=== PATIENT | male | born 1950 | race Hispanic/Latino ===

== ENCOUNTER 2017-09-24 08:07 | Day surgery (SDC) | payer OTHER ==
[2017-09-24] MEDS ORDERED: NACL 0.9% 1000 ML 1,000 ML ONE (09:35)
[2017-09-24] MEDS ORDERED: BREVIBLOC IV ONE (10:00)
[2017-09-24] MEDS ORDERED: NACL 0.9% 1000 ML 1,000 ML IV SCH (10:00)
[2017-09-24] MEDS ORDERED: XYLOCAINE MPF 2% ONE (10:00)
[2017-09-24] MEDS ORDERED: WATER FOR IRRIG STERILE IR ONE (10:02)
[2017-09-24] MEDS ORDERED: WATER FOR IRRIG STERILE ONE (10:03)
[2017-09-24] MEDS ORDERED: DIPRIVAN 10 MG/ML IV ONE ×2 (10:14)
--- NOTE | 2017-09-24 10:44 | Post Operative Note ---
Pre-op diagnosis: personal history of colon polyps; surveillance colonsocopy Post-op diagnosis: same (diverticulosis, internal hemorrhoids) Findings: 1. Diverticulosis 2. Internal hemorrhoids Procedure: Colonoscopy Anesthesia: MAC Surgeon: RUFINA ROMEO Estimated blood loss: none Pathology: none Condition: stable Disposition: same day
--- NOTE | 2017-09-24 10:49 | Operative Report ---
Operative Report Operative Report: Colonoscopy Procedure Note Date of procedure: 09/24/2017 Endoscopist: Timothy Longoria Pre-op diagnosis: personal history of colon polyps, surveillance colonoscopy Post-op diagnosis: diverticulosis, internal hemorrhoids Anesthesia: MAC Complications: No immediate complications Estimated blood loss: none Procedure: After consent was obtained, the patient was placed in the left lateral decubitus position. The fujinon colonoscope was inserted into the patient's rectum under direct vision, and advanced to the cecum without difficulty. The patient tolerated the procedure well. The views of the mucosa were fair. The quality of prep was fair. The patient's vital signs were monitored continuously throughout the procedure. Findings: There were multiple small and large diverticula throughout the colon (more pronounced on the left side of colon) Internal hemorrhoids were visualized (moderate sized) on retroflexion view. Otherwise, the colon appeared normal. Impression: 1. Diverticulosis 2. Internal hemorrhoids Recommendations: -high fiber diet daily -repeat colonoscopy due to personal history of polyps in 5 years
[2017-09-24 11:00] VITALS: BP 126/67
--- NOTE | 2017-09-24 12:06 | Anesthesia Consultation ---
Anesthesia Consult and Med Hx Date of service: 09/24/17 - Airway Anesthetic Teeth Evaluation: Dentures (upper, lower) ROM Head & Neck: Adequate Mental/Hyoid Distance: Adequate Mallampati Class: Class III Intubation Access Assessment: Possibly Difficult - Pulmonary Exam CTA: Yes - Cardiac Exam Anesthetic Concerns: AFIB - Pre-Operative Health Status ASA Pre-Surgery Classification: ASA3 - Pulmonary COPD: Yes Home Oxygen Therapy: Yes - Cardiovascular System Hx Hypertension: Yes Hx Heart Attack/AMI: Yes Hx Angina: No Hx Percutaneous Transluminal Coronary Angioplasty (PTCA): Yes Hx Cardia Arrhythmia: Yes (afib) Hx Internal Defibrillator: Yes
--- NOTE | 2017-09-24 12:07 | Anesthesia Day of Surgery ---
Anesthesia Day of Surgery - Day of Surgery Patient Examined: Yes Patient H&P Reviewed: Yes Patient is NPO: Yes Beta Blockers: Yes
== END 2017-09-24 08:08 | disposition home or self-care (01) ==
LOC: GIO 08:07
PROVIDERS: ATTEND Internal Medicine Gastroenterology
DX: Z12.11 Encounter for screening for malignant neoplasm of colon (principal); K57.30 Diverticulosis of large intestine without perforation or abscess without bleeding; K64.8 Other hemorrhoids; J44.9 Chronic obstructive pulmonary disease, unspecified; I25.10 Atherosclerotic heart disease of native coronary artery without angina pectoris; E03.9 Hypothyroidism, unspecified; I13.0 Hypertensive heart and chronic kidney disease with heart failure and stage 1 through stage 4 chronic kidney disease, or unspecified chronic kidney disease; N18.9 Chronic kidney disease, unspecified; I50.9 Heart failure, unspecified; I48.91 Unspecified atrial fibrillation; I25.2 Old myocardial infarction; F17.200 Nicotine dependence, unspecified, uncomplicated; Z95.810 Presence of automatic (implantable) cardiac defibrillator; Z98.61 Coronary angioplasty status; Z68.20 Body mass index [BMI] 20.0-20.9, adult; Z88.0 Allergy status to penicillin; Z88.8 Allergy status to other drugs, medicaments and biological substances; Z99.81 Dependence on supplemental oxygen; Z86.010 Personal history of colon polyps
CPT/HCPCS: G0105; J2704; J7030

== ENCOUNTER 2018-07-20 06:47 | Inpatient (IN) | payer OTHER ==
[2018-07-20 07:31] LABS: Basophils # (Auto) 0.1 K/mm3 (0.0-0.1); Basophils % (Auto) 0.7 % (0.0-1.8); Eosinophils # (Auto) 0.1 K/mm3 (0.0-0.4); Eosinophils % (Auto) 1.3 % (0.0-4.3); Hematocrit 41.2 % (35.5-45.6); Hemoglobin 14.1 gm/dl (11.8-15.2); Lymphocytes # (Auto) 1.2 K/mm3 (1.2-5.4); Lymphocytes % (Auto) 12.8 % (13.4-35.0); Mean Corpuscular HGB Conc 34 % (32-34); Mean Corpuscular Volume 104 fl (84-94); Monocytes # (Auto) 0.8 K/mm3 (0.0-0.8); Monocytes % (Auto) 8.9 % (0.0-7.3); Red Blood Count 3.95 M/mm3 (3.65-5.03); Red Cell Distribution Width 14.6 % (13.2-15.2)
[2018-07-20 07:34] LABS: Platelet Count 95 K/mm3 (140-440)
[2018-07-20 07:38] LABS: INR 0.94 (0.87-1.13)
[2018-07-20 07:39] LABS: Partial Thromboplastin Time 29.9 Sec. (24.2-36.6)
[2018-07-20 07:46] LABS: BUN/Creatinine Ratio 12; Blood Urea Nitrogen 17 mg/dL (9-20); Calcium 9.1 mg/dL (8.4-10.2); Hemolysis Index 7
[2018-07-20] MEDS ORDERED: PEPCID IV ONE ×2 (08:30→14:36)
[2018-07-20] MEDS ORDERED: NITROSTAT SL PRN (08:30)
--- NOTE | 2018-07-20 08:31 | Emergency Department Report ---
ED Chest Pain HPI - General Chief Complaint: Chest Pain Stated Complaint: CHEST PAIN Time Seen by Provider: 07/20/18 08:23 Source: patient, EMS (ems notes not available at time of chart dictation), RN notes reviewed, old records reviewed Mode of arrival: Stretcher Limitations: Physical Limitation - History of Present Illness Initial Comments: Primary care DrBrandy: [facility] Past medical history: Pulmonary hypertension, congestive heart failure, ejection fraction 40%, atrial fibrillation, not on anticoagulation secondary to bleeding, AICD, advanced emphysema on home oxygen. Seen in this hospital a few months ago for shortness of breath chest pain, headache CT scan of the chest which was negative for pulmonary embolus. This is a 68-year-old gentleman with a history of ischemic heart disease, who presents to the emergency room today with a complaint of "angina." He reports typical substernal and subxiphoid burning pain, which is not radiating to the back, arms or neck, chronic shortness of breath, really no nausea, vomiting or diaphoresis. These symptoms of angina are intermittent, and basically resolved. He endorses compliance with his outpatient medications. He denies headache, neck pain, shortness of breath which is new or different, does report chronic shortness of breath He furthermore denies DVT, pulmonary embolus risk factors. No posterior leg pain, no posterior leg swelling, no recent surgeries, trips or prolonged periods of immobilization. His angina pain is basically resolved at this point in time. MD Complaint: chest pain -: Sudden Onset: during rest Pain Location: substernal, epigastric Pain Radiation: none Severity: moderate Severity scale (0 -10): 6 Quality: other (burning, aching, pressure) Consistency: intermittent Improves With: nothing Worsens With: nothing Aspirin use within the Past 7 Days: (1) Yes - Related Data On Oral Contraceptives: No Home Medications Medication Instructions Recorded Confirmed Last Taken Allopurinol [Zyloprim] 300 mg PO QDAY 09/24/17 04/08/18 1 Day Ago ~04/07/18 Aspirin [Aspirin TAB] 325 mg PO ONCE 09/24/17 04/08/18 1 Day Ago ~04/07/18 Cetirizine HCl [ZyrTEC] 10 mg PO QDAY 09/24/17 04/08/18 1 Day Ago ~04/07/18 Cholecalciferol (Vitamin D3) 1,000 unit PO QDAY 09/24/17 04/08/18 09/23/17 10:00 [Vitamin D3] Digoxin [Lanoxin] 0.25 mg PO DAILY 09/24/17 04/08/18 1 Day Ago ~04/07/18 Mometasone Furoate [Asmanex] 2 puff IH QPM 09/24/17 04/08/18 1 Day Ago ~04/07/18 Nicotine Polacrilex [Nicotine 2 mg BC QID 09/24/17 04/08/18 1 Day Ago Lozenge] ~04/07/18 Polyethylene Glycol 3350 17 gm PO QDAY 09/24/17 04/08/18 1 Day Ago [Smoothlax] ~04/07/18 Ranitidine HCl [Zantac 150 MG TAB] 150 mg PO BID 09/24/17 04/08/18 1 Day Ago ~04/07/18 Simvastatin [Zocor TAB] 40 mg PO QHS 09/24/17 04/08/18 1 Day Ago ~04/07/18 Tiotropium Br/Olodaterol HCl 4 gm IH QDAY 09/24/17 04/08/18 1 Day Ago [Stiolto Respimat Inhal [place]] ~04/07/18 Previous Rx's Medication Instructions Recorded Last Taken Type ALBUTEROL Inhaler (OR & NICU) 2 puff IH Q4HR PRN #1 pump 04/11/18 Unknown Rx [ProAir HFA Inhaler] Azithromycin [Zithromax TAB] 500 mg PO QDAY #3 tablet 04/11/18 Unknown Rx Furosemide [Lasix TAB] 40 mg PO QAM #30 tablet 04/11/18 Unknown Rx Metoprolol Xl [Metoprolol 100 mg PO BID #60 tablet 04/11/18 Unknown Rx SUCCINATE ER TAB] Nitroglycerin [Nitrostat] 0.4 mg SL Q5M PRN #30 tab 04/11/18 Unknown Rx Prednisone [predniSONE 5 mg (6-Day 5 mg PO .TAPER #1 tab.ds.pk 04/11/18 Unknown Rx Pack, 21 Tabs)] dilTIAZem CD [Cardizem Cd] 120 mg PO DAILY #30 cap 04/12/18 Unknown Rx Allergies Allergy/AdvReac Type Severity Reaction Status Date / Time amiodarone Allergy Unknown Itching Verified 04/08/18 01:54 Penicillins Allergy Unknown Itching Verified 04/08/18 01:53 warfarin Allergy Unknown Itching Verified 04/08/18 01:54 Heart Score - HEART Score History: Moderately suspicious EKG: Non-specific Age: > 65 Risk factors: > 3 risk factors or hx of atherosclerotic disease Troponin: < normal limit HEART Score: 6 - Critical Actions Critical Actions: 4-6 pts:12-16.6% risk of adverse cardiac event. Should be admitted ED Review of Systems ROS: Stated complaint: CHEST PAIN Other details as noted in HPI Constitutional: malaise. denies: fever Eyes: denies: vision change ENT: denies: epistaxis Respiratory: denies: cough Cardiovascular: chest pain Gastrointestinal: denies: vomiting Genitourinary: denies: dysuria Musculoskeletal: denies: back pain, arthralgia, myalgia Skin: lesions (chronic skin hyperpigmentation) Neurological: weakness Psychiatric: denies: anxiety ED Past Medical Hx - Past Medical History Previous Medical History?: Yes Hx Hypertension: Yes Hx Heart Attack/AMI: Yes Hx Congestive Heart Failure: Yes Hx COPD: Yes Hx Tuberculosis: No Hx HIV: No Additional medical history: A-FIB - Surgical History Past Surgical History?: Yes Hx Coronary Stent: Yes (x 2) Hx Pacemaker: Yes Hx Internal Defibrillator: Yes - Social History Smoking Status: Current Every Day Smoker Substance Use Type: None - Medications Home Medications: Home Medications Medication Instructions Recorded Confirmed Last Taken Type Allopurinol [Zyloprim] 300 mg PO QDAY 09/24/17 04/08/18 1 Day Ago History ~04/07/18 Aspirin [Aspirin TAB] 325 mg PO ONCE 09/24/17 04/08/18 1 Day Ago History ~04/07/18 Cetirizine HCl [ZyrTEC] 10 mg PO QDAY 09/24/17 04/08/18 1 Day Ago History ~04/07/18 Cholecalciferol (Vitamin D3) 1,000 unit PO QDAY 09/24/17 04/08/18 09/23/17 10:00 History [Vitamin D3] Digoxin [Lanoxin] 0.25 mg PO DAILY 09/24/17 04/08/18 1 Day Ago History ~04/07/18 Mometasone Furoate [Asmanex] 2 puff IH QPM 09/24/17 04/08/18 1 Day Ago History ~04/07/18 Nicotine Polacrilex [Nicotine 2 mg BC QID 09/24/17 04/08/18 1 Day Ago History Lozenge] ~04/07/18 Polyethylene Glycol 3350 17 gm PO QDAY 09/24/17 04/08/18 1 Day Ago History [Smoothlax] ~04/07/18 Ranitidine HCl [Zantac 150 MG TAB] 150 mg PO BID 09/24/17 04/08/18 1 Day Ago History ~04/07/18 Simvastatin [Zocor TAB] 40 mg PO QHS 09/24/17 04/08/18 1 Day Ago History ~04/07/18 Tiotropium Br/Olodaterol HCl 4 gm IH QDAY 09/24/17 04/08/18 1 Day Ago History [Stiolto Respimat Inhal [place]] ~04/07/18 ALBUTEROL Inhaler (OR & NICU) 2 puff IH Q4HR PRN #1 pump 04/11/18 Unknown Rx [ProAir HFA Inhaler] Azithromycin [Zithromax TAB] 500 mg PO QDAY #3 tablet 04/11/18 Unknown Rx Furosemide [Lasix TAB] 40 mg PO QAM #30 tablet 04/11/18 Unknown Rx Metoprolol Xl [Metoprolol 100 mg PO BID #60 tablet 04/11/18 Unknown Rx SUCCINATE ER TAB] Nitroglycerin [Nitrostat] 0.4 mg SL Q5M PRN #30 tab 04/11/18 Unknown Rx Prednisone [predniSONE 5 mg (6-Day 5 mg PO .TAPER #1 tab.ds.pk 04/11/18 Unknown Rx Pack, 21 Tabs)] dilTIAZem CD [Cardizem Cd] 120 mg PO DAILY #30 cap 04/12/18 Unknown Rx ED Physical Exam - General Limitations: No Limitations, Physical Limitation General appearance: in no apparent distress - Head Head exam: Present: atraumatic, normocephalic - Eye Eye exam: Present: normal appearance, EOMI. Absent: nystagmus - ENT ENT exam: Present: normal exam, normal orophraynx, mucous membranes moist, normal external ear exam - Neck Neck exam: Present: normal inspection, full ROM. Absent: tenderness, meningismus - Respiratory Respiratory exam: Present: normal lung sounds bilaterally, decreased breath sounds. Absent: respiratory distress, wheezes, rales, rhonchi, stridor - Cardiovascular Cardiovascular Exam: Present: regular rate, irregular rhythm, normal heart so unds. Absent: systolic murmur, diastolic murmur, rubs, gallop - GI/Abdominal GI/Abdominal exam: Present: soft. Absent: distended, tenderness, guarding, rebound, rigid, pulsatile mass - Rectal Rectal exam: Present: deferred - Extremities Exam Extremities exam: Present: normal inspection, full ROM, other (2+ pulses noted in the bilateral upper, lower extremities. Compartments soft. No long bony tenderness. The pelvis is stable.). Absent: pedal edema, joint swelling, calf tenderness - Back Exam Back exam: Present: normal inspection, full ROM. Absent: tenderness, CVA tenderness (R), paraspinal tenderness, vertebral tenderness - Neurological Exam Neurological exam: Present: alert, other (Extraocular movements intact. Tongue midline. No facial droop. Facial sensation intact to light touch in the V1, V2, V3 distribution bilaterally. 5 and 5 strength in 4 extremities.. Sensation is intact to light touch in 4 extremities.). Absent: motor sensory deficit - Psychiatric Psychiatric exam: Present: normal affect, normal mood - Skin Skin exam: Present: warm, dry, intact, normal color. Absent: rash ED Course Vital Signs 07/20/18 07/20/18 07/20/18 06:55 06:59 07:01 Temperature 97.8 F Pulse Rate 71 74 Respiratory 20 20 21 Rate Blood Pressure 142/62 O2 Sat by Pulse 100 92 100 Oximetry 07/20/18 07/20/18 07/20/18 07:15 07:30 07:45 Temperature Pulse Rate 82 82 85 Respiratory 28 H 21 21 Rate Blood Pressure 134/83 132/69 125/65 O2 Sat by Pulse 100 98 98 Oximetry 07/20/18 07/20/18 07/20/18 08:00 08:15 08:30 Temperature Pulse Rate 85 73 92 H Respiratory 19 22 14 Rate Blood Pressure 121/66 125/67 132/68 O2 Sat by Pulse 98 95 Oximetry 07/20/18 07/20/18 07/20/18 08:45 09:01 09:15 Temperature Pulse Rate 78 86 90 Respiratory 23 22 19 Rate Blood Pressure 125/78 129/63 119/70 O2 Sat by Pulse 99 99 99 Oximetry 07/20/18 07/20/18 07/20/18 09:30 09:45 10:00 Temperature Pulse Rate 80 88 Respiratory 23 23 Rate Blood Pressure 133/64 120/60 124/66 O2 Sat by Pulse 98 100 Oximetry 07/20/18 10:15 Temperature Pulse Rate 89 Respiratory 25 H Rate Blood Pressure 121/54 O2 Sat by Pulse 100 Oximetry VERONICA score - Veronica Score Age > 65: (1) Yes Aspirin use within the Past 7 Days: (1) Yes 3 or more CAD Risk Factors: (1) Yes 2 or more Angina events in past 24 hrs: (1) Yes Known CAD with more than 50% Stenosis: (0) No Elevated Cardiac Markers: (0) No ST Deviation Greater than 0.5mm: (0) No VERONICA Score: 4 ED Medical Decision Making - Lab Data Result diagrams: 07/20/18 07:12 07/20/18 07:12 Vital Signs 07/20/18 07/20/18 07/20/18 06:55 06:59 07:01 Temperature 97.8 F Pulse Rate 71 74 Respiratory 20 20 21 Rate Blood Pressure 142/62 O2 Sat by Pulse 100 92 100 Oximetry 07/20/18 07/20/18 07/20/18 07:15 07:30 07:45 Temperature Pulse Rate 82 82 85 Respiratory 28 H 21 21 Rate Blood Pressure 134/83 132/69 125/65 O2 Sat by Pulse 100 98 98 Oximetry 07/20/18 07/20/18 07/20/18 08:00 08:15 08:30 Temperature Pulse Rate 85 73 92 H Respiratory 19 22 14 Rate Blood Pressure 121/66 125/67 132/68 O2 Sat by Pulse 98 95 Oximetry 07/20/18 07/20/18 07/20/18 08:45 09:01 09:15 Temperature Pulse Rate 78 86 90 Respiratory 23 22 19 Rate Blood Pressure 125/78 129/63 119/70 O2 Sat by Pulse 99 99 99 Oximetry 07/20/18 07/20/18 07/20/18 09:30 09:45 10:00 Temperature Pulse Rate 80 88 Respiratory 23 23 Rate Blood Pressure 133/64 120/60 124/66 O2 Sat by Pulse 98 100 Oximetry 07/20/18 10:15 Temperature Pulse Rate 89 Respiratory 25 H Rate Blood Pressure 121/54 O2 Sat by Pulse 100 Oximetry Lab Results 07/20/18 07/20/18 07/20/18 Range/Units 07:12 07:12 07:12 WBC 9.4 (4.5-11.0) K/mm3 RBC 3.95 (3.65-5.03) M/mm3 Hgb 14.1 (11.8-15.2) gm/dl Hct 41.2 (35.5-45.6) % MCV 104 H (84-94) fl MCH 36 H (28-32) pg MCHC 34 (32-34) % RDW 14.6 (13.2-15.2) % Plt Count 95 L (140-440) K/mm3 Lymph % (Auto) 12.8 L (13.4-35.0) % Graham % (Auto) 8.9 H (0.0-7.3) % Eos % (Auto) 1.3 (0.0-4.3) % Baso % (Auto) 0.7 (0.0-1.8) % Lymph # 1.2 (1.2-5.4) K/mm3 Graham # 0.8 (0.0-0.8) K/mm3 Eos # 0.1 (0.0-0.4) K/mm3 Baso # 0.1 (0.0-0.1) K/mm3 Seg Neutrophils % 76.3 H (40.0-70.0) % Seg Neutrophils # 7.2 (1.8-7.7) K/mm3 PT 13.1 (12.2-14.9) Sec. INR 0.94 (0.87-1.13) APTT 29.9 (24.2-36.6) Sec. Sodium 139 (137-145) mmol/L Potassium 3.7 (3.6-5.0) mmol/L Chloride 97.0 L (98-107) mmol/L Carbon Dioxide 30 (22-30) mmol/L Anion Gap 16 mmol/L BUN 17 (9-20) mg/dL Creatinine 1.4 (0.8-1.5) mg/dL Estimated GFR 50 ml/min BUN/Creatinine Ratio 12 % Glucose 121 H (75-100) mg/dL Hemoglobin A1c (4-6) % Calcium 9.1 (8.4-10.2) mg/dL Troponin T < 0.010 (0.00-0.029) ng/mL Lipase (13-60) units/L 07/20/18 07/20/18 07/20/18 Range/Units 07:12 08:41 09:29 WBC (4.5-11.0) K/mm3 RBC (3.65-5.03) M/mm3 Hgb (11.8-15.2) gm/dl Hct (35.5-45.6) % MCV (84-94) fl MCH (28-32) pg MCHC (32-34) % RDW (13.2-15.2) % Plt Count (140-440) K/mm3 Lymph % (Auto) (13.4-35.0) % Graham % (Auto) (0.0-7.3) % Eos % (Auto) (0.0-4.3) % Baso % (Auto) (0.0-1.8) % Lymph # (1.2-5.4) K/mm3 Graham # (0.0-0.8) K/mm3 Eos # (0.0-0.4) K/mm3 Baso # (0.0-0.1) K/mm3 Seg Neutrophils % (40.0-70.0) % Seg Neutrophils # (1.8-7.7) K/mm3 PT (12.2-14.9) Sec. INR (0.87-1.13) APTT (24.2-36.6) Sec. Sodium (137-145) mmol/L Potassium (3.6-5.0) mmol/L Chloride (98-107) mmol/L Carbon Dioxide (22-30) mmol/L Anion Gap mmol/L BUN (9-20) mg/dL Creatinine (0.8-1.5) mg/dL Estimated GFR ml/min BUN/Creatinine Ratio % Glucose (75-100) mg/dL Hemoglobin A1c 5.1 (4-6) % Calcium (8.4-10.2) mg/dL Troponin T < 0.010 (0.00-0.029) ng/mL Lipase 36 (13-60) units/L - EKG Data -: EKG Interpreted by Ut - EKG Data 07/20/18 12:10 Atrial fibrillation, 84 bpm, borderline left axis deviation, premature ventricular contractions, abnormal EKG, not consistent with ST elevation myocardial infarction - Radiology Data Radiology results: report reviewed, image reviewed X-ray of the chest shows chronic emphysematous changes. No acute disease. - Medical Decision Making Differential diagnosis, including not limited to: Acute coronary syndrome, GERD, gastritis, hiatal hernia, pneumonia, pneumothorax, hemothorax Assessment and plan: 68-year-old gentleman who has multiple cardiovascular risk factors, known history of ischemic heart disease, with concerning chest pain. Reports no pulmonary embolus or DVT risk factors, is low risk by well's criter ia, this is not tachycardic and is not currently hypoxic. Presented with similar symptoms a few months ago, and was ruled out for pulmonary embolus. Clinically doubts a pulmonary embolus at this point time. We will treat his symptoms, and he will be admitted to the medical service for a cardiac risk stratification. He is basically pain-free at this point in time, is resting comfortably in a stretcher, and in no acute disease. X-ray of the chest demonstrates no decompensated or emergent disease, chronic emphysematous changes, and EKG appears to be unchanged from prior. Hospital physician, Dr. Bhargavi Calvo, to admit the patient to the medical service for cardiac risk stratification. Critical care attestation.: If time is entered above; I have spent that time in minutes in the direct care of this critically ill patient, excluding procedure time. ED Disposition Clinical Impression: Chest pain Disposition: OP ADMIT IP TO THIS HOSP Is pt being admited?: Yes Does the pt Need Aspirin: Yes Condition: Good
--- NOTE | 2018-07-20 09:57 | History and Physical Report ---
History of Present Illness Date of examination: 07/20/18 Date of admission: 07/20/18 Chief complaint: chest pain History of present illness: This is a 68-year-old gentleman with a history of CHF EF 40%, atrial fib not on AC, PHTN, COPD, tobacco abuse who presents to the emergency room today with a complaint of "angina." He reports substernal aching pain, which is not radiating to the back, arms or neck, chronic shortness of breath, 6/10 in intensity w/o any nausea, vomiting or diaphoresis. Patient states that this chest pain make hin wake up from sleep in the morning today. But these symptoms of angina were going on intermittently since this weekend. He endorses compliance with his outpatient medications. He denies headache, neck pain, does report chronic shortness of breath. In the ER his troponin normal, no specific EKG changes. He was admitted for further evaluation and admission. PAST MEDICAL HISTORY:COPD, CHF, coronary artery disease, hypertension, A. fib not on AC due to h/o GI bleed, PAST SURGICAL HISTORY: AICD, hip replacement SOCIAL HISTORY: No alcohol, no drugs, smoke 1/2 to 3/4pack cigarettes per day FAMILY HISTORY: Hypertension Review of System: Constitutional: no fever, no chills, no weight loss Ears, eyes, nose, mouth and throat: no nasal congestion, no nasal discharge, no sinus pressure, no vision change, no red eye. Neck: No neck pain or rigidity. Cardiovascular: + chest pain, no orthopnea, no palpitations, no leg swelling Respiratory: No shortness of breath, no cough, no congestion, no wheezing Gastrointestinal: no abdominal pain, no nausea, no vomiting Genitourinary : no dysuria, no hematuria Musculoskeletal: no joint swelling or muscle ache Integumentary: no rash, no pruritis Neurological: no parathesias, no numbness, no tingling Endocrine: no cold or heat intolerance, no polyuria or polydipsia Hematologic/Lymphatic: no easy bruising, no easy bleeding, no gland swelling Allergic/Immunologic: no urticaria, no angioedema. Medications and Allergies Allergies Allergy/AdvReac Type Severity Reaction Status Date / Time amiodarone Allergy Unknown Itching Verified 04/08/18 01:54 Penicillins Allergy Unknown Itching Verified 04/08/18 01:53 warfarin Allergy Unknown Itching Verified 04/08/18 01:54 Home Medications Medication Instructions Recorded Confirmed Last Taken Type Allopurinol [Zyloprim] 300 mg PO QDAY 09/24/17 07/20/18 1 Day Ago History ~04/07/18 Aspirin [Aspirin TAB] 325 mg PO ONCE 09/24/17 07/20/18 1 Day Ago History ~04/07/18 Cetirizine HCl [ZyrTEC] 10 mg PO QDAY 09/24/17 07/20/18 1 Day Ago History ~04/07/18 Cholecalciferol (Vitamin D3) 1,000 unit PO QDAY 09/24/17 07/20/18 09/23/17 10:00 History [Vitamin D3] Digoxin [Lanoxin] 0.25 mg PO DAILY 09/24/17 07/20/18 1 Day Ago History ~04/07/18 Mometasone Furoate [Asmanex] 2 puff IH QPM 09/24/17 07/20/18 1 Day Ago History ~04/07/18 Polyethylene Glycol 3350 17 gm PO QDAY 09/24/17 07/20/18 1 Day Ago History [Smoothlax] ~04/07/18 Ranitidine HCl [Zantac 150 MG TAB] 150 mg PO BID 09/24/17 07/20/18 1 Day Ago History ~04/07/18 Tiotropium Br/Olodaterol HCl 4 gm IH QDAY 09/24/17 07/20/18 1 Day Ago History [Stiolto Respimat Inhal [place]] ~04/07/18 ALBUTEROL Inhaler (OR & NICU) 2 puff IH Q4HR PRN #1 pump 04/11/18 07/20/18 Unknown Rx [ProAir HFA Inhaler] Furosemide [Lasix TAB] 40 mg PO QAM #30 tablet 04/11/18 07/20/18 Unknown Rx Prednisone [predniSONE 5 mg (6-Day 5 mg PO .TAPER #1 tab.ds.pk 04/11/18 07/20/18 Unknown Rx Pack, 21 Tabs)] AtorvaSTATin [Lipitor] 20 mg PO QHS 07/20/18 07/20/18 Unknown History Estradiol [Climara] 0.1 mg TD QWEEK 07/20/18 07/20/18 Unknown History Fluticasone [Flonase] 1 spray NS QDAY 07/20/18 07/20/18 Unknown History Metoprolol Xl [Metoprolol 100 mg PO QPM 07/20/18 07/20/18 Unknown History SUCCINATE ER TAB] Active Meds: Active Medications Nitroglycerin (Nitrostat) 0.4 mg SL .Q5MIN PRN PRN Reason: Chest Pain Exam - Physical Exam Narrative exam: GENERAL: well-developed WM lying on bed appeared to be in no discomfort. HEENT: Normocephalic. Atraumatic. No conjunctival congestion or icterus. Patient has moist mucous membranes. NECK: Supple. Trachea midline. CHEST/LUNGS: Clear to auscultated bilaterally, breathing nonlabored. No wheezes crackles or rhonchi. HEART/CARDIOVASCULAR: Regular in rate and rhythm. S1 and S2 positive. ABDOMEN: Abdomen is soft, nontender. Patient has normal bowel sounds. SKIN: There is no rash. Warm and dry. NEURO: No focal motor deficit. Follows command. MUSCULOSKELETAL: No joint effusion or tenderness. EXTRIMITY: No edema, no cyanosis or clubbing. PSYCH: Cooperative. - Constitutional Vitals: Temp Pulse Resp BP Pulse Ox 97.8 F 82 21 132/69 98 07/20/18 06:55 07/20/18 07:30 07/20/18 07:30 07/20/18 07:30 07/20/18 07:30 Results - Labs CBC & Chem 7: 07/20/18 07:12 07/20/18 07:12 Labs: Abnormal lab results 07/20/18 07/20/18 Range/Units 07:12 07:12 MCV 104 H (84-94) fl MCH 36 H (28-32) pg Plt Count 95 L (140-440) K/mm3 Lymph % (Auto) 12.8 L (13.4-35.0) % [place] % (Auto) 8.9 H (0.0-7.3) % Seg Neutrophils % 76.3 H (40.0-70.0) % Chloride 97.0 L (98-107) mmol/L Glucose 121 H (75-100) mg/dL - Imaging and Cardiology Chest x-ray: report reviewed Assessment and Plan Acute chest pain - Need to r/o ACS - will admit to telemetry bed - monitor with serial CE and EKG - will place on Aspirin, statin - as needed SL NTG and iv morphin for pain - Monitor BP, add betablocker and ACEI if BP tolerates - Cardiology consult, stress test, 2d echo - cardiac diet now ASTRID, Cr 1.4 today, cont to monitor, if worsen will need renal consult Other chronic issues: Chronic Atrial fibrillation, not on AC COPD w/o exacerbation Chronic respiratory failure on home O2 h/o AICD (automatic cardioverter/defibrillator) Hx of coronary artery disease with stent placement Chronic combined systolic (congestive) and diastolic (congestive) heart failure PHTN - will resume home meds, supportive care - provide DVT Px with lovenox
[2018-07-20] MEDS ORDERED: SODIUM CHLORIDE FLUSH SYRINGE 10 ML IV PRN (09:58)
[2018-07-20] MEDS ORDERED: MORPHINE IV PRN (09:58)
[2018-07-20] MEDS ORDERED: AMBIEN PO PRN (09:58)
--- NOTE | 2018-07-20 10:14 | XRay Report ---
ROUTINE CHEST, TWO VIEWS: HISTORY: chest pain. Advanced emphysematous changes with bullous changes throughout the right upper lobe are stable since 04/08/18. No evidence for pneumonia, pleural effusion or pneumothorax. Heart size and pulmonary vascularity remain within normal limits. Single lead pacemaker device is unchanged. IMPRESSION: Advanced emphysema. No acute process.
[2018-07-20] MEDS ORDERED: NON-FORMULARY (Tiotropium Br/Olodaterol Hcl [Stiolto Respimat Inhal Spray] 4 GM) IH SCH (10:15)
[2018-07-20] MEDS ORDERED: LEXISCAN IV ONE ×2 (11:48→12:02)
[2018-07-20] MEDS ORDERED: ASPIRIN PO ONE (12:13)
[2018-07-20] MEDS: ZYLOPRIM PO SCH (14:40)
[2018-07-20] MEDS: PROTONIX PO SCH (14:40)
[2018-07-20] MEDS: LANOXIN PO SCH (14:40)
--- NOTE | 2018-07-20 16:41 | Treadmill Report ---
THALLIUM STRESS TEST REPORT LEFT VENTRICLE: Left ventricular chamber size is within normal spread. Perfusion study demonstrates homogeneous uptake of the tracer in all segments, no significant perfusion defects identified. Gated analysis demonstrates normal left ventricular systolic function, ejection fraction of 66%. CONCLUSION: Normal myocardial perfusion study. JOB# [id number] CA/NTS
[2018-07-20] MEDS: COLACE PO SCH ×2 (17:06→21:41)
[2018-07-20] MEDS: DUONEB *Not for PRN Use IH SCH ×2 (18:49→20:18)
[2018-07-21] MEDS ORDERED: ALUM-MAG HYDROX-SIMETH 200-200-20MG/5ML PO PRN (01:26)
[2018-07-21] MEDS: DUONEB *Not for PRN Use IH SCH ×4 (02:05→21:15)
[2018-07-21] MEDS ORDERED: CARDIZEM CD PO SCH (10:00)
[2018-07-21] MEDS: COLACE PO SCH ×2 (10:18→22:23)
[2018-07-21] MEDS: ECOTRIN PO SCH (10:18)
[2018-07-21] MEDS: PROTONIX PO SCH (10:18)
[2018-07-21] MEDS: ZYLOPRIM PO SCH (10:18)
[2018-07-21] MEDS: LANOXIN PO SCH (10:19)
--- NOTE | 2018-07-21 11:59 | Consultation ---
Addendum entered and electronically signed by DAI FAITH MD 07/21/18 17:01: 68-year-old man with a history of severe COPD with probably treat oxygen, perman ent atrial fibrillation, poorly documented history of coronary artery disease and ischemic cardiomyopathy who usually receives his care at the [facility]. He has a single-chamber cardiac defibrillator implanted several years ago at the [facility]. Recent left ventricle systolic function assessment 2 months ago reported only mild left ventricular systolic dysfunction, ejection fraction 40- 45%. There was severe pulmonary hypertension with a pulmonary artery systolic pressure of 70. He was admitted to this hospital at this time with shortness of breath and poorly characterized chest pain. His pain was mostly described as central abdominal pain which radiated to his epigastric area. In response, the medical service ordered a pharmacologic stress test performed yesterday, results show a normal perfusion study, with left ventricle ejection fraction 40%. Cardiac consultation was today requested for rapid ventricular response to his chronic atrial fibrillation. On review of his medications, it appears his beta geoffrey therapy was not resumed since his admission. In addition, the patient still complains of intermittent abdominal pain although he appears comfortable in no distress. With regards to his permanent atrial fibrillation he is on a rate control strategy, and previously determined a poor risk for oral anticoagulation due to recurrent gastrointestinal bleeding. Recommendations: We will resume therapy with metoprolol, and digoxin for atrial fibrillation rate control. Patient was previously tormented a poor risk for oral anticoagulation due to recurrent gastrointestinal bleeding. We'll defer to internal medicine and gastroenterology for further evaluation and management of his ongoing complaints of abdominal pain. We will request his records from the [facility], for further review of his prior invasive coronary evaluation. Original Note: History of Present Illness Consult date: 07/21/18 Consult reason: chest pain History of present illness: Patient is a 68 year old male who is usually followed by the [facility]. He gives a history of remote 2 vessel coronary artery disease, ischemic cardiomyopathy and has an indwelling cardiac defibrillator. He has chronic atrial fibrillation but is not on oral anticoagulation due to prior GI bleed. He is also on home oxygen for chronic lung disease. Patient presented to this hospital with complaints of chest pain and on yesterday underwent a persantine thallium stress test that reports a normal myocardial perfusion study. An echocardiogram done March 2018 documents RV failure with severe pulmonary hypertension, ejection fraction 40-45%. His presenting ECG is atrial fibrillation with a well controlled ventricular rate. Today, on assessment, patient noted rapid atrial fibrillation, rate ranging in the 160s. Patient denies palpitations, unusual shortness of breath and dizziness. He denies AICD discharge. Patient complains of intermittent abdominal pain. Noted febrile on vitals today. Medications and Allergies Allergies Allergy/AdvReac Type Severity Reaction Status Date / Time amiodarone Allergy Unknown Itching Verified 04/08/18 01:54 Penicillins Allergy Unknown Itching Verified 04/08/18 01:53 warfarin Allergy Unknown Itching Verified 04/08/18 01:54 Home Medications Medication Instructions Recorded Confirmed Last Taken Type Allopurinol [Zyloprim] 300 mg PO QDAY 09/24/17 07/20/18 1 Day Ago History ~04/07/18 Aspirin [Aspirin TAB] 325 mg PO ONCE 09/24/17 07/20/18 1 Day Ago History ~04/07/18 Cetirizine HCl [ZyrTEC] 10 mg PO QDAY 09/24/17 07/20/18 1 Day Ago History ~04/07/18 Cholecalciferol (Vitamin D3) 1,000 unit PO QDAY 09/24/17 07/20/18 09/23/17 10:00 History [Vitamin D3] Digoxin [Lanoxin] 0.25 mg PO DAILY 09/24/17 07/20/18 1 Day Ago History ~04/07/18 Mometasone Furoate [Asmanex] 2 puff IH QPM 09/24/17 07/20/18 1 Day Ago History ~04/07/18 Polyethylene Glycol 3350 17 gm PO QDAY 09/24/17 07/20/18 1 Day Ago History [Smoothlax] ~04/07/18 Ranitidine HCl [Zantac 150 MG TAB] 150 mg PO BID 09/24/17 07/20/18 1 Day Ago History ~04/07/18 Tiotropium Br/Olodaterol HCl 4 gm IH QDAY 09/24/17 07/20/18 1 Day Ago History [Stiolto Respimat Inhal [place]] ~04/07/18 ALBUTEROL Inhaler (OR & NICU) 2 puff IH Q4HR PRN #1 pump 04/11/18 07/20/18 Unknown Rx [ProAir HFA Inhaler] Furosemide [Lasix TAB] 40 mg PO QAM #30 tablet 04/11/18 07/20/18 Unknown Rx Prednisone [predniSONE 5 mg (6-Day 5 mg PO .TAPER #1 tab.ds.pk 04/11/18 07/20/18 Unknown Rx Pack, 21 Tabs)] AtorvaSTATin [Lipitor] 20 mg PO QHS 07/20/18 07/20/18 Unknown History Estradiol [Climara] 0.1 mg TD QWEEK 07/20/18 07/20/18 Unknown History Fluticasone [Flonase] 1 spray NS QDAY 07/20/18 07/20/18 Unknown History Metoprolol Xl [Metoprolol 100 mg PO QPM 07/20/18 07/20/18 Unknown History SUCCINATE ER TAB] Active Meds: Active Medications Al Hydrox/Mg Hydrox/Simethicone (Alum-Mag Hydrox-Simeth [id number]/5ml) 30 ml PO Q4H PRN PRN Reason: Indigestion Last Admin: 07/21/18 01:34 Dose: 30 ml Documented by: Albuterol/Ipratropium (Duoneb *Not For Prn Use*) 1 ampul IH Q6HRT [facility] Last Admin: 07/21/18 09:44 Dose: 1 ampul Documented by: Allopurinol (Zyloprim) 300 mg PO QDAY [facility] Last Admin: 07/21/18 10:18 Dose: 300 mg Documented by: Aspirin (Ecotrin) 325 mg PO QDAY [facility] Last Admin: 07/21/18 10:18 Dose: 325 mg Documented by: Atorvastatin Calcium (Lipitor) 40 mg PO QHS [facility] Last Admin: 07/20/18 21:41 Dose: 40 mg Documented by: Digoxin (Lanoxin) 0.25 mg PO DAILY [facility] Last Admin: 07/21/18 10:19 Dose: 0.25 mg Documented by: Diltiazem HCl (Cardizem Cd) 120 mg PO DAILY [facility] Last Admin: 07/21/18 10:19 Dose: 120 mg Documented by: Docusate Sodium (Colace) 100 mg PO BID [facility] Last Admin: 07/21/18 10:18 Dose: 100 mg Documented by: Morphine Sulfate (Morphine) 2 mg IV Q5MIN PRN PRN Reason: Chest Pain unrelieved by NTG Nitroglycerin (Nitrostat) 0.4 mg SL .Q5MIN PRN PRN Reason: Chest Pain Pantoprazole Sodium (Protonix) 40 mg PO QDAY [facility] Last Admin: 07/21/18 10:18 Dose: 40 mg Documented by: Sodium Chloride (Sodium Chloride Flush Syringe 10 Ml) 10 ml IV PRN PRN PRN Reason: LINE FLUSH Zolpidem Tartrate (Ambien) 10 mg PO QHS PRN PRN Reason: Sleep Physical Examination Vital Signs Temp Pulse Resp BP Pulse Ox 97.8 F 71 20 142/62 92 07/20/18 06:55 07/20/18 06:55 07/20/18 06:55 07/20/18 06:55 07/20/18 06:55 Results 07/20/18 07:12 07/20/18 07:12 Assessment and Plan Chest pain, atypical normal perfusion MPI this admission Abdominal pain Ischemic Cardiomyopathy Presence of AICD Severe pulmonary hypertension Chronic lung disease on home oxygen Hx of CAD with remote PCI Chronic Afib not on oral anticoagulation due to prior GI bleed Echocardiogram 03/2018 reports RV failure with severe pulmonary hypertension, ejection fraction 40-45%.
[2018-07-21] MEDS: LOPRESSOR IV PRN (13:50)
[2018-07-21] MEDS: LOPRESSOR PO SCH ×2 (15:50→22:22)
--- NOTE | 2018-07-21 17:15 | Progress Note ---
Assessment and Plan Assessment and plan: Patient is a 68 man with a history of CHF EF 40%, atrial fib not on AC, PHTN, COPD, tobacco abuse who presents to the emergency room today with a complaint of "angina." He reports substernal aching pain, which is not radiating to the back, arms or neck, chronic shortness of breath, 6/10 in intensity w/o any nausea, vomiting or diaphoresis. Patient states that this chest pain make hin wake up from sleep in the morning today. But these symptoms of angina were going on intermittently since this weekend. He endorses compliance with his outpatient medications. He denies headache, neck pain, does report chronic shortness of breath. In the ER his troponin normal, no specific EKG changes. He was admitted for further evaluation and admission. Acute chest pain: Cardiology evaluating ASTRID, Cr 1.4 today, cont to monitor, if worsen will need renal consult: repeat bmp in am AFib with RVR: consulted Cardiology Chronic hypoxic respiratory failure on 2 liters of o2 at night and 3 liters of O2 during the day due to COPD: social services counselor on stop smoking, continue O2 COPD w/o exacerbation Chronic respiratory failure on home O2 h/o AICD (automatic cardioverter/defibrillator) Hx of coronary artery disease with stent placement Chronic combined systolic (congestive) and diastolic (congestive) heart failure PHTN History Interval history: Patient was seen and examined. Follow-up on current diagnosis of sob,cp. Overnight uneventful. Patient denies any nausea/vomiting or severe headaches. Imaging, nursing note, chart, labs and old chart reviewed. Discussed with patient. This morning patient was in afib with rvr and i consulted Dr. Sullivan and told him that patient metoprolol was not started but he was place on Cardizem. He said he would evaluate. Hospitalist Physical - Physical exam Narrative exam: Gen: WDWN, NAD, Awake, Alert, Orientated HEENT: NCAT, EOMI, PERRL, OP Clear Neck: supple, no adenopathy, no thyromegaly, no JVD CVS/Heart: irregular irregular, normal S1S2, pulses present bilaterally Chest/Lungs: diminished bs bilaterally, Symmetrical chest expansion, good air entry bilaterally GI/Abdomen: soft, NTND, good bowel sounds, no guarding or rebound /Bladder: no suprapubic tenderness, no CVA or paraspinal tenderness Extermity/Skin: no c/c/e, no obvious rash MSK: FROM x 4 Neuro: CN 2-12 grossly intact, no new focal deficits Psych: calm - Constitutional Vitals: Temp Pulse Resp BP Pulse Ox 99.0 F 132 H 20 121/59 94 07/21/18 15:15 07/21/18 16:01 07/21/18 15:15 07/21/18 15:15 07/21/18 11:17 Results - Labs CBC & Chem 7: 07/20/18 07:12 07/20/18 07:12 Labs: Laboratory Last Values WBC 9.4 K/mm3 (4.5-11.0) 07/20/18 07:12 RBC 3.95 M/mm3 (3.65-5.03) 07/20/18 07:12 Hgb 14.1 gm/dl (11.8-15.2) 07/20/18 07:12 Hct 41.2 % (35.5-45.6) 07/20/18 07:12 MCV 104 fl (84-94) H 07/20/18 07:12 MCH 36 pg (28-32) H 07/20/18 07:12 MCHC 34 % (32-34) 07/20/18 07:12 RDW 14.6 % (13.2-15.2) 07/20/18 07:12 Plt Count 95 K/mm3 (140-440) L 07/20/18 07:12 Lymph % (Auto) 12.8 % (13.4-35.0) L 07/20/18 07:12 [place] % (Auto) 8.9 % (0.0-7.3) H 07/20/18 07:12 Eos % (Auto) 1.3 % (0.0-4.3) 07/20/18 07:12 Baso % (Auto) 0.7 % (0.0-1.8) 07/20/18 07:12 Lymph # 1.2 K/mm3 (1.2-5.4) 07/20/18 07:12 [place] # 0.8 K/mm3 (0.0-0.8) 07/20/18 07:12 Eos # 0.1 K/mm3 (0.0-0.4) 07/20/18 07:12 Baso # 0.1 K/mm3 (0.0-0.1) 07/20/18 07:12 Seg Neutrophils % 76.3 % (40.0-70.0) H 07/20/18 07:12 Seg Neutrophils # 7.2 K/mm3 (1.8-7.7) 07/20/18 07:12 PT 13.1 Sec. (12.2-14.9) 07/20/18 07:12 INR 0.94 (0.87-1.13) 07/20/18 07:12 APTT 29.9 Sec. (24.2-36.6) 07/20/18 07:12 Sodium 139 mmol/L (137-145) 07/20/18 07:12 Potassium 3.7 mmol/L (3.6-5.0) 07/20/18 07:12 Chloride 97.0 mmol/L (98-107) L 07/20/18 07:12 Carbon Dioxide 30 mmol/L (22-30) 07/20/18 07:12 Anion Gap 16 mmol/L 07/20/18 07:12 BUN 17 mg/dL (9-20) 07/20/18 07:12 Creatinine 1.4 mg/dL (0.8-1.5) 07/20/18 07:12 Estimated GFR 50 ml/min 07/20/18 07:12 BUN/Creatinine Ratio 12 % 07/20/18 07:12 Glucose 121 mg/dL (75-100) H 07/20/18 07:12 Hemoglobin A1c 5.1 % (4-6) 07/20/18 07:12 Calcium 9.1 mg/dL (8.4-10.2) 07/20/18 07:12 Troponin T < 0.010 ng/mL (0.00-0.029) 07/20/18 13:09 Lipase 36 units/L (13-60) 07/20/18 08:41 Digoxin 0.7 ng/mL (0.9-2.0) L 07/20/18 08:41
[2018-07-21] MEDS ORDERED: CARDIZEM/D5W 100MG/100ML 100 MG/100 ML BAG IV SCH (18:00)
[2018-07-22] MEDS: DUONEB *Not for PRN Use IH SCH ×4 (01:43→20:50)
[2018-07-22 06:46] LABS: Basophils # (Auto) 0.1 K/mm3 (0.0-0.1); Basophils % (Auto) 0.4 % (0.0-1.8); Eosinophils % (Auto) 0.2 % (0.0-4.3); Hematocrit 40.1 % (35.5-45.6); Hemoglobin 13.5 gm/dl (11.8-15.2); Lymphocytes # (Auto) 1.3 K/mm3 (1.2-5.4); Lymphocytes % (Auto) 9.9 % (13.4-35.0); Mean Corpuscular HGB Conc 34 % (32-34); Mean Corpuscular Volume 104 fl (84-94); Monocytes # (Auto) 1.7 K/mm3 (0.0-0.8); Monocytes % (Auto) 12.7 % (0.0-7.3); Platelet Count 112 K/mm3 (140-440); Red Blood Count 3.85 M/mm3 (3.65-5.03); Red Cell Distribution Width 14.7 % (13.2-15.2)
[2018-07-22 06:58] LABS: Calcium 8.8 mg/dL (8.4-10.2)
[2018-07-22] MEDS: ECOTRIN PO SCH (09:36)
[2018-07-22] MEDS: LANOXIN PO SCH (09:36)
[2018-07-22] MEDS: PROTONIX PO SCH (09:37)
[2018-07-22] MEDS: COLACE PO SCH ×2 (09:37→22:51)
[2018-07-22] MEDS: ZYLOPRIM PO SCH (09:37)
[2018-07-22] MEDS: LOPRESSOR IV PRN (09:44)
--- NOTE | 2018-07-22 11:10 | Progress Note ---
Assessment and Plan Chest pain, atypical normal perfusion MPI this admission Abdominal pain Ischemic Cardiomyopathy Presence of AICD Severe pulmonary hypertension Chronic lung disease on home oxygen Hx of CAD with remote PCI Chronic Afib not on oral anticoagulation due to prior GI bleed Echocardiogram 03/2018 reports RV failure with severe pulmonary hypertension, ejection fraction 40-45%. Resume therapy with metoprolol, and digoxin for optimal rate control of atrial fibrillation. Subjective Date of service: 07/22/18 Interval history: Afib with rapid ventricular rate on telemetry. Patient was not given his 6am dose of metoprolol. Patient is resting in bed comfortably. He denies unusual shortness of breath and palpitations. Objective Vital Signs Temp Pulse Pulse Pulse Pulse Resp Resp 07/22/18 10:00 114 H 136 H 20 07/22/18 09:44 120 H 07/22/18 09:36 120 H 07/22/18 09:33 99.4 F 131 H 20 07/22/18 08:27 111 H 07/22/18 08:26 99.3 F 102 H 20 07/22/18 06:18 20 07/22/18 05:01 98.4 F 82 18 07/22/18 04:07 98.1 F 86 12 07/22/18 04:00 82 07/22/18 01:50 07/21/18 23:22 98.7 F 92 H 16 07/21/18 22:22 103 H 07/21/18 22:00 07/21/18 21:29 98 H 18 07/21/18 21:18 07/21/18 21:16 91 H 18 07/21/18 20:05 99.0 F 18 07/21/18 20:00 115 H 07/21/18 16:01 132 H 07/21/18 15:15 99.0 F 20 07/21/18 14:17 115 H 18 07/21/18 14:11 110 H 16 07/21/18 13:50 149 H 07/21/18 12:00 159 H 07/21/18 11:17 100.3 F H 136 H 20 BP BP Pulse Ox 07/22/18 10:00 94 07/22/18 09:44 115/62 07/22/18 09:36 115/62 07/22/18 09:33 115/62 92 07/22/18 08:27 94 07/22/18 08:26 98/51 93 07/22/18 06:18 100/51 07/22/18 05:01 104/45 90 07/22/18 04:07 97/38 91 07/22/18 04:00 07/22/18 01:50 92 07/21/18 23:22 102/42 90 07/21/18 22:22 110/59 07/21/18 22:00 92 07/21/18 21:29 07/21/18 21:18 92 07/21/18 21:16 07/21/18 20:05 110/59 07/21/18 20:00 07/21/18 16:01 07/21/18 15:15 121/59 07/21/18 14:17 07/21/18 14:11 07/21/18 13:50 120/63 07/21/18 12:00 07/21/18 11:17 126/60 94 - Physical Examination General: No Apparent Distress HEENT: Positive: PERRL Cardiac: Positive: irregularly irregular Lungs: Positive: Decreased Breath Sounds Neuro: Positive: Grossly Intact Extremities: Absent: edema - Labs and Meds CBC 07/22/18 Range/Units 05:45 WBC 13.1 H (4.5-11.0) K/mm3 RBC 3.85 (3.65-5.03) M/mm3 Hgb 13.5 (11.8-15.2) gm/dl Hct 40.1 (35.5-45.6) % Plt Count 112 L (140-440) K/mm3 Lymph # 1.3 (1.2-5.4) K/mm3 Jack # 1.7 H (0.0-0.8) K/mm3 Eos # 0.0 (0.0-0.4) K/mm3 Baso # 0.1 (0.0-0.1) K/mm3 Comprehensive Metabolic Panel 07/22/18 Range/Units 05:45 Sodium 134 L (137-145) mmol/L Potassium 4.6 D (3.6-5.0) mmol/L Chloride 94.8 L (98-107) mmol/L Carbon Dioxide 30 (22-30) mmol/L BUN 19 (9-20) mg/dL Creatinine 1.2 (0.8-1.5) mg/dL Glucose 93 (75-100) mg/dL Calcium 8.8 (8.4-10.2) mg/dL
[2018-07-22] MEDS: LOPRESSOR PO SCH ×3 (13:50→22:51)
--- NOTE | 2018-07-22 18:22 | Progress Note ---
Assessment and Plan Assessment and plan: Patient is a 68 man with a history of CHF EF 40%, Atrial fibrillation not on AC, pHTN, COPD and tobacco abuse who presents to the emergency room today with a complaint of "angina." He reports substernal aching pain, which is not radiating to the back, arms or neck, chronic shortness of breath, 6/10 in intensity w/o any nausea, vomiting or diaphoresis. Patient states that this chest pain make hin wake up from sleep in the morning today. But these symptoms of angina were going on intermittently since this weekend. He endorses compliance with his outpatient medications. He denies headache, neck pain, does report chronic shortness of breath. In the ER his troponin normal, no specific EKG changes. He was admitted for further evaluation and admission. AFib with RVR: consulted Cardiology, digoxin iv Acute chest pain: Cardiology evaluating ASTRID, Cr 1.4 today, continue to monitor, if worsen will need renal consult: repeat bmp in am Chronic hypoxic respiratory failure on 2 liters of o2 at night and 3 liters of O2 during the day due to COPD: auto travel counselor on stop smoking, continue O2 COPD w/o exacerbation: duonebs Chronic respiratory failure on home O2 h/o AICD (automatic cardioverter/defibrillator) Hx of coronary artery disease with stent placement Chronic combined systolic and diastolic heart failure pHTN History Interval history: Patient was seen and examined. Follow-up on current diagnosis of Afib with RVR, still present. Overnight uneventful. Patient denies any nausea/vomiting or severe headaches. Imaging, nursing note, chart, labs and old chart reviewed. Discussed with patient. Hospitalist Physical - Physical exam Narrative exam: Gen: WDWN, NAD, Awake, Alert, Orientated HEENT: NCAT, EOMI, PERRL, OP Clear Neck: supple, no adenopathy, no thyromegaly, no JVD CVS/Heart: irregular irregular, normal S1S2, pulses present bilaterally Chest/Lungs: diminished bs bilaterally, Symmetrical chest expansion, good air entry bilaterally GI/Abdomen: soft, NTND, good bowel sounds, no guarding or rebound /Bladder: no suprapubic tenderness, no CVA or paraspinal tenderness Extermity/Skin: no c/c/e, no obvious rash MSK: FROM x 4 Neuro: CN 2-12 grossly intact, no new focal deficits Psych: calm - Constitutional Vitals: Temp Pulse Resp BP Pulse Ox 99.3 F 142 H 18 123/58 91 07/22/18 12:57 07/22/18 14:02 07/22/18 12:57 07/22/18 14:02 07/22/18 12:57 Results - Labs CBC & Chem 7: 07/22/18 05:45 07/22/18 05:45 Labs: Laboratory Last Values WBC 13.1 K/mm3 (4.5-11.0) H 07/22/18 05:45 RBC 3.85 M/mm3 (3.65-5.03) 07/22/18 05:45 Hgb 13.5 gm/dl (11.8-15.2) 07/22/18 05:45 Hct 40.1 % (35.5-45.6) 07/22/18 05:45 MCV 104 fl (84-94) H 07/22/18 05:45 MCH 35 pg (28-32) H 07/22/18 05:45 MCHC 34 % (32-34) 07/22/18 05:45 RDW 14.7 % (13.2-15.2) 07/22/18 05:45 Plt Count 112 K/mm3 (140-440) L 07/22/18 05:45 Lymph % (Auto) 9.9 % (13.4-35.0) L 07/22/18 05:45 [place] % (Auto) 12.7 % (0.0-7.3) H 07/22/18 05:45 Eos % (Auto) 0.2 % (0.0-4.3) 07/22/18 05:45 Baso % (Auto) 0.4 % (0.0-1.8) 07/22/18 05:45 Lymph # 1.3 K/mm3 (1.2-5.4) 07/22/18 05:45 [place] # 1.7 K/mm3 (0.0-0.8) H 07/22/18 05:45 Eos # 0.0 K/mm3 (0.0-0.4) 07/22/18 05:45 Baso # 0.1 K/mm3 (0.0-0.1) 07/22/18 05:45 Seg Neutrophils % 76.8 % (40.0-70.0) H 07/22/18 05:45 Seg Neutrophils # 10.1 K/mm3 (1.8-7.7) H 07/22/18 05:45 PT 13.1 Sec. (12.2-14.9) 07/20/18 07:12 INR 0.94 (0.87-1.13) 07/20/18 07:12 APTT 29.9 Sec. (24.2-36.6) 07/20/18 07:12 Sodium 134 mmol/L (137-145) L 07/22/18 05:45 Potassium 4.6 mmol/L (3.6-5.0) D 07/22/18 05:45 Chloride 94.8 mmol/L (98-107) L 07/22/18 05:45 Carbon Dioxide 30 mmol/L (22-30) 07/22/18 05:45 Anion Gap 14 mmol/L 07/22/18 05:45 BUN 19 mg/dL (9-20) 07/22/18 05:45 Creatinine 1.2 mg/dL (0.8-1.5) 07/22/18 05:45 Estimated GFR 60 ml/min 07/22/18 05:45 BUN/Creatinine Ratio 16 % 07/22/18 05:45 Glucose 93 mg/dL (75-100) 07/22/18 05:45 Hemoglobin A1c 5.1 % (4-6) 07/20/18 07:12 Calcium 8.8 mg/dL (8.4-10.2) 07/22/18 05:45 Troponin T < 0.010 ng/mL (0.00-0.029) 07/20/18 13:09 Lipase 36 units/L (13-60) 07/20/18 08:41 Digoxin 0.7 ng/mL (0.9-2.0) L 07/20/18 08:41
[2018-07-22] MEDS: MILK OF MAGNESIA PO PRN (23:39)
[2018-07-23] MEDS: LOPRESSOR PO SCH ×3 (05:45→22:08)
[2018-07-23] MEDS: MILK OF MAGNESIA PO PRN (05:49)
[2018-07-23] MEDS: DUONEB *Not for PRN Use IH SCH ×3 (08:20→19:34)
[2018-07-23] MEDS: ECOTRIN PO SCH (10:16)
[2018-07-23] MEDS: ZYLOPRIM PO SCH (10:16)
[2018-07-23] MEDS: PROTONIX PO SCH (10:16)
[2018-07-23] MEDS: COLACE PO SCH ×2 (10:16→22:08)
[2018-07-23] MEDS: LANOXIN PO SCH (10:17)
--- NOTE | 2018-07-23 13:26 | Progress Note ---
Addendum entered and electronically signed by DAI FAITH MD 07/23/18 14:03: Continue atrial fibrillation rate control as previously outlined. Cardiac status is stable. Original Note: Assessment and Plan Chest pain, atypical normal perfusion MPI this admission Abdominal pain Ischemic Cardiomyopathy Presence of AICD Severe pulmonary hypertension Chronic lung disease on home oxygen Hx of CAD with remote PCI Chronic Afib not on oral anticoagulation due to prior GI bleed Echocardiogram 03/2018 reports RV failure with severe pulmonary hypertension, ejection fraction 40-45%. Continue medical therapy with metoprolol, and digoxin for optimal rate control of atrial fibrillation. Stable cardiac young. Subjective Date of service: 07/23/18 Interval history: Patient has no complaints. Afib with a well controlled ventricular rate on telemetry. Objective Vital Signs Temp Pulse Pulse Pulse Resp Resp BP 07/23/18 11:47 98.6 F 117 H 20 111/58 07/23/18 10:17 100 H 130/66 07/23/18 09:14 07/23/18 08:30 90 20 07/23/18 08:20 87 20 07/23/18 07:56 98.4 F 106 H 20 129/66 07/23/18 05:45 99 H 103/54 07/23/18 04:58 98.0 F 99 H 18 103/54 07/22/18 23:13 98.0 F 102 H 20 130/61 07/22/18 22:51 94 H 129/56 07/22/18 21:00 110 H 20 07/22/18 20:51 94 H 20 07/22/18 20:19 98.0 F 98 H 20 129/56 07/22/18 20:06 96 H 20 07/22/18 19:55 110 H 07/22/18 16:29 111 H 07/22/18 16:28 98.6 F 105 H 18 121/57 07/22/18 14:05 74 20 07/22/18 14:02 142 H 123/58 07/22/18 13:45 72 20 Pulse Ox 07/23/18 11:47 93 07/23/18 10:17 07/23/18 09:14 94 07/23/18 08:30 07/23/18 08:20 07/23/18 07:56 92 07/23/18 05:45 07/23/18 04:58 96 07/22/18 23:13 91 07/22/18 22:51 07/22/18 21:00 98 07/22/18 20:51 95 07/22/18 20:19 95 07/22/18 20:06 07/22/18 19:55 07/22/18 16:29 94 07/22/18 16:28 95 07/22/18 14:05 07/22/18 14:02 07/22/18 13:45 - Physical Examination General: No Apparent Distress HEENT: Positive: PERRL Neck: Positive: trachea midline Cardiac: Positive: irregularly irregular Lungs: Positive: Decreased Breath Sounds Neuro: Positive: Grossly Intact Extremities: Absent: edema
--- NOTE | 2018-07-23 15:03 | Progress Note ---
Assessment and Plan Assessment and plan: Patient is a 68 man with a history of CHF EF 40%, Atrial fibrillation not on AC, pHTN, COPD and tobacco abuse who presents to the emergency room today with a complaint of "angina." He reports substernal aching pain, which is not radiating to the back, arms or neck, chronic shortness of breath, 6/10 in intensity w/o any nausea, vomiting or diaphoresis. Patient states that this chest pain make hin wake up from sleep in the morning today. But these symptoms of angina were going on intermittently since this weekend. He endorses compliance with his outpatient medications. He denies headache, neck pain, does report chronic shortness of breath. In the ER his troponin normal, no specific EKG changes. He was admitted for further evaluation and admission. 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 Follow-up on current diagnosis of Afib with RVR, still present. Overnight uneventful. Patient denies any nausea/vomiting or severe headaches. Imaging, nursing note, chart, labs and old chart reviewed. Discussed with patient. Hospitalist Physical - Physical exam Narrative exam: Gen: WDWN, NAD, Awake, Alert, Orientated HEENT: NCAT, EOMI, PERRL, OP Clear Neck: supple, no adenopathy, no thyromegaly, no JVD CVS/Heart: irregular irregular, normal S1S2, pulses present bilaterally Chest/Lungs: diminished bs bilaterally, Symmetrical chest expansion, good air entry bilaterally GI/Abdomen: soft, NTND, good bowel sounds, no guarding or rebound /Bladder: no suprapubic tenderness, no CVA or paraspinal tenderness Extermity/Skin: no c/c/e, no obvious rash MSK: FROM x 4 Neuro: CN 2-12 grossly intact, no new focal deficits Psych: calm - Constitutional Vitals: Temp Pulse Resp BP Pulse Ox 98.6 F 117 H 20 111/58 93 07/23/18 11:47 07/23/18 11:47 07/23/18 11:47 07/23/18 11:47 07/23/18 11:47 Results - Labs CBC & Chem 7: 07/22/18 05:45 07/22/18 05:45 Labs: Laboratory Last Values WBC 13.1 K/mm3 (4.5-11.0) H 07/22/18 05:45 RBC 3.85 M/mm3 (3.65-5.03) 07/22/18 05:45 Hgb 13.5 gm/dl (11.8-15.2) 07/22/18 05:45 Hct 40.1 % (35.5-45.6) 07/22/18 05:45 MCV 104 fl (84-94) H 07/22/18 05:45 MCH 35 pg (28-32) H 07/22/18 05:45 MCHC 34 % (32-34) 07/22/18 05:45 RDW 14.7 % (13.2-15.2) 07/22/18 05:45 Plt Count 112 K/mm3 (140-440) L 07/22/18 05:45 Lymph % (Auto) 9.9 % (13.4-35.0) L 07/22/18 05:45 [place] % (Auto) 12.7 % (0.0-7.3) H 07/22/18 05:45 Eos % (Auto) 0.2 % (0.0-4.3) 07/22/18 05:45 Baso % (Auto) 0.4 % (0.0-1.8) 07/22/18 05:45 Lymph # 1.3 K/mm3 (1.2-5.4) 07/22/18 05:45 [place] # 1.7 K/mm3 (0.0-0.8) H 07/22/18 05:45 Eos # 0.0 K/mm3 (0.0-0.4) 07/22/18 05:45 Baso # 0.1 K/mm3 (0.0-0.1) 07/22/18 05:45 Seg Neutrophils % 76.8 % (40.0-70.0) H 07/22/18 05:45 Seg Neutrophils # 10.1 K/mm3 (1.8-7.7) H 07/22/18 05:45 PT 13.1 Sec. (12.2-14.9) 07/20/18 07:12 INR 0.94 (0.87-1.13) 07/20/18 07:12 APTT 29.9 Sec. (24.2-36.6) 07/20/18 07:12 Sodium 134 mmol/L (137-145) L 07/22/18 05:45 Potassium 4.6 mmol/L (3.6-5.0) D 07/22/18 05:45 Chloride 94.8 mmol/L (98-107) L 07/22/18 05:45 Carbon Dioxide 30 mmol/L (22-30) 07/22/18 05:45 Anion Gap 14 mmol/L 07/22/18 05:45 BUN 19 mg/dL (9-20) 07/22/18 05:45 Creatinine 1.2 mg/dL (0.8-1.5) 07/22/18 05:45 Estimated GFR 60 ml/min 07/22/18 05:45 BUN/Creatinine Ratio 16 % 07/22/18 05:45 Glucose 93 mg/dL (75-100) 07/22/18 05:45 Hemoglobin A1c 5.1 % (4-6) 07/20/18 07:12 Calcium 8.8 mg/dL (8.4-10.2) 07/22/18 05:45 Troponin T < 0.010 ng/mL (0.00-0.029) 07/20/18 13:09 Lipase 36 units/L (13-60) 07/20/18 08:41 Digoxin 0.7 ng/mL (0.9-2.0) L 07/20/18 08:41
[2018-07-24] MEDS: LOPRESSOR PO SCH (06:12)
[2018-07-24 07:46] VITALS: BP 103/72
[2018-07-24] MEDS: DUONEB *Not for PRN Use IH SCH ×2 (07:55→13:25)
[2018-07-24] MEDS: PROTONIX PO SCH (09:14)
[2018-07-24] MEDS: COLACE PO SCH (09:14)
[2018-07-24] MEDS: ZYLOPRIM PO SCH (09:14)
[2018-07-24] MEDS: ECOTRIN PO SCH (09:14)
[2018-07-24] MEDS: LANOXIN PO SCH (09:16)
--- NOTE | 2018-07-24 10:10 | Progress Note ---
Assessment and Plan Chest pain, atypical normal perfusion MPI this admission Abdominal pain Ischemic Cardiomyopathy Presence of AICD Severe pulmonary hypertension Chronic lung disease on home oxygen Hx of CAD with remote PCI Chronic Afib not on oral anticoagulation due to prior GI bleed Echocardiogram 03/2018 reports RV failure with severe pulmonary hypertension, ejection fraction 40-45%. Optimal rate controlling agents for permanent atrial fibrillation. Stable cardiac young. Subjective Date of service: 07/24/18 Interval history: Patient has no complaints. Rapid Afib seen on telemetry this morning. Objective Vital Signs Temp Pulse Pulse Pulse Pulse Resp Resp 07/24/18 09:16 108 H 07/24/18 07:55 99 H 20 07/24/18 07:44 98.3 F 83 18 07/24/18 06:12 97 H 07/24/18 04:08 98.6 F 97 H 17 07/23/18 23:56 98.7 F 100 H 17 07/23/18 22:08 95 H 07/23/18 22:03 98.5 F 95 H 20 07/23/18 20:04 108 H 20 07/23/18 19:59 98.2 F 103 H 18 07/23/18 19:51 91 H 07/23/18 19:35 89 07/23/18 19:22 108 H 07/23/18 15:47 98.0 F 101 H 20 07/23/18 15:03 118 H 07/23/18 14:11 86 07/23/18 14:01 85 07/23/18 11:47 98.6 F 117 H 20 07/23/18 10:17 100 H Resp BP Pulse Ox 07/24/18 09:16 103/72 07/24/18 07:55 98 07/24/18 07:44 103/72 97 07/24/18 06:12 128/73 07/24/18 04:08 128/73 94 07/23/18 23:56 103/62 97 07/23/18 22:08 112/66 07/23/18 22:03 112/66 95 07/23/18 20:04 98 07/23/18 19:59 98/56 92 07/23/18 19:51 18 07/23/18 19:35 18 97 07/23/18 19:22 07/23/18 15:47 113/57 92 02/28/19 15:03 115/66 07/23/18 14:11 18 07/23/18 14:01 18 07/23/18 11:47 111/58 93 07/23/18 10:17 130/66 - Physical Examination General: No Apparent Distress HEENT: Positive: PERRL Neck: Positive: trachea midline Cardiac: Positive: irregularly irregular Lungs: Positive: Decreased Breath Sounds Neuro: Positive: Grossly Intact Extremities: Absent: edema
--- NOTE | 2018-07-24 10:54 | Discharge Summary ---
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 Patient states that this chest pain make hin wake up from sleep in the morning today. But these symptoms of angina were going on intermittently since this weekend. He endorses compliance with his outpatient medications. He denies headache, neck pain, does report chronic shortness of breath. In the ER his troponin normal, no spe cific EKG changes. He was admitted for further evaluation and admission. 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0: No Anticoagulant overlap therapy prescribed at discharge: No Contraindication No Overlap Therapy order at DC: Not Indicated Exam - Physical Exam Narrative exam: Gen: WDWN, NAD, Awake, Alert, Orientated HEENT: NCAT, EOMI, PERRL, OP Clear Neck: supple, no adenopathy, no thyromegaly, no JVD CVS/Heart: irregular irregular, normal S1S2, pulses present bilaterally Chest/Lungs: diminished bs bilaterally, Symmetrical chest expansion, good air entry bilaterally GI/Abdomen: soft, NTND, good bowel sounds, no guarding or rebound /Bladder: no suprapubic tenderness, no CVA or paraspinal tenderness Extermity/Skin: no c/c/e, no obvious rash MSK: FROM x 4 Neuro: CN 2-12 grossly intact, no new focal deficits Psych: calm - Constitutional Vitals: Temp Pulse Resp BP Pulse Ox 98.3 F 108 H 20 103/72 98 07/24/18 07:44 07/24/18 09:16 07/24/18 07:55 07/24/18 09:16 07/24/18 07:55 Plan Activity: other (no strenous activity ) Diet: low salt Follow up with: MARISOL MUELLER MD [Primary Care Provider] - 3-5 Days DAI FAITH MD [Staff Physician] - 7 Days Prescriptions: Digoxin [Lanoxin] 0.25 mg PO DAILY #30 tablet Metoprolol [Lopressor TAB] 50 mg PO Q8HR #90 tablet
== END 2018-07-24 13:50 | disposition home or self-care (01) | DRG 309 ==
LOC: ED 06:47 → 4A 10:05 → OBSVTOIN 07-22 11:10
PROVIDERS: ADMIT Internal Medicine; ATTEND Internal Medicine
DX: I48.1 Persistent atrial fibrillation (principal); N17.9 Acute kidney failure, unspecified; J96.11 Chronic respiratory failure with hypoxia; I50.42 Chronic combined systolic (congestive) and diastolic (congestive) heart failure; J44.9 Chronic obstructive pulmonary disease, unspecified; I25.10 Atherosclerotic heart disease of native coronary artery without angina pectoris; I11.0 Hypertensive heart disease with heart failure; I27.20 Pulmonary hypertension, unspecified; I25.5 Ischemic cardiomyopathy; R07.89 Other chest pain; F17.210 Nicotine dependence, cigarettes, uncomplicated; Z82.49 Family history of ischemic heart disease and other diseases of the circulatory system; Z88.0 Allergy status to penicillin; Z88.8 Allergy status to other drugs, medicaments and biological substances; Z79.82 Long term (current) use of aspirin; Z79.899 Other long term (current) drug therapy; Z79.51 Long term (current) use of inhaled steroids; Z95.810 Presence of automatic (implantable) cardiac defibrillator; Z99.81 Dependence on supplemental oxygen; Z71.6 Tobacco abuse counseling
CPT/HCPCS: 36415; 71046; 78452; 80048; 80162; 83036; 83690; 84484; 85025; 85610; 85730; 93005; 93010; 93017; 94640; 94760; G0378; A9270-GY; A9502; J2785